=== PATIENT | female | born 1940 | race Caucasian/White ===

== ENCOUNTER 2020-10-12 15:35 | Emergency (ER) | payer OTHER, MEDICARE ==
[2020-10-12] MEDS ORDERED: LIDOCAINE 5% TOPICAL PATCH TP ONE (15:58)
[2020-10-12] MEDS ORDERED: ACETAMINOPHEN 1000 MG/100 ML VIAL (NON FORMULARY) IVPB ONE (15:58)
[2020-10-12 16:18] VITALS: TEMP 97.6; BMI 39.5
[2020-10-12] MEDS ORDERED: ACETAMINOPHEN INJECTION 100 ML IVPB ONE (16:21)
[2020-10-12] MEDS ORDERED: DIPHTH,PERTUSS(ACELL),TET 0.5 ML DISP.SYRIN IM ONE ×2 (16:35→16:42)
[2020-10-12] MEDS ORDERED: LIDOCAINE 5% TOPICAL PATCH ONE (16:42)
[2020-10-12 16:59] LABS: BASO % 1.3 % (0-2.0); EOS % 2.2 % (0-4.5); HEMATOCRIT 36.4 % (32.4-45.2); HEMOGLOBIN 12.2 GM/dl (10.7-15.3); LYMPH % 23.9 % (8-40); MCH 31.2 pg (25.7-33.7); MCHC 33.5 g/dl (32.0-36.0); MEAN CELL VOLUME 93.3 fl (80-96); MEAN PLT VOLUME 10.5 fl (7.5-11.1); MONO % 7.3 % (3.8-10.2); NEUT % 65.3 % (42.8-82.8); PLATELET COUNT 157 K/MM3 (134-434); RBC 3.91 M/mm3 (3.60-5.2); RDW 12.9 % (11.6-15.6); WHITE BLOOD COUNT 9.9 K/mm3 (4.0-10.8)
[2020-10-12 16:59] LABS: ACTIVATED PTT 37.3 SECONDS (25.2-36.5)
[2020-10-12 17:01] LABS: ALBUMIN 3.6 g/dl (3.4-5.0); BILIRUBIN,TOTAL 1.4 mg/dl (0.2-1); CALCIUM 8.3 mg/dl (8.5-10); TOT PROT 7.6 g/dl (6.4-8.2)
[2020-10-12 17:04] LABS: INR 1.59 (0.82-1.09); PROTHROMBIN TIME (PATIENT) 17.3 SEC (10.2-13.0)
[2020-10-12 17:07] LABS: POTASSIUM 5.8 mmol/L (3.5-5.1)
[2020-10-12] MEDS ORDERED: morphine CARPU-JECT 4 MG/1 ML DISP.SYRIN IVPUSH ONE (17:07)
[2020-10-12] MEDS ORDERED: morphine SULFATE 4 MG/ML VIAL ONE (17:14)
[2020-10-12] MEDS ORDERED: LOCK ITEM NR ONE (18:58)
[2020-10-12 19:32] VITALS: BP 123/49; PULSE 61
== END 2020-10-12 21:33 | disposition home or self-care (01) ==
LOC: FER 15:35
PROC: 3E0333Z Introduction of Anti-inflammatory into Peripheral Vein, Percutaneous Approach (ICD-10-PCS; principal; 2020-10-12)
PROC: 3E0234Z Introduction of Serum, Toxoid and Vaccine into Muscle, Percutaneous Approach (ICD-10-PCS; 2020-10-12)
PROC: 3E033NZ Introduction of Analgesics, Hypnotics, Sedatives into Peripheral Vein, Percutaneous Approach (ICD-10-PCS; 2020-10-12)
DX: S01.81XA Laceration without foreign body of other part of head, initial encounter (principal)
CPT/HCPCS: 36415; 70450-TC; 71250-TC; 72125-TC; 72128-TC; 72131-TC; 73090-TC-RT-FY; 73110-TC-RT-FY; 73130-TC-RT-FY; 73562-TC-LT-FY; 73562-TC-RT-FY; 74176-TC; 80053; 85025; 85610; 85730; 90715; 99285-25; J0131